=== PATIENT | male | born 1980 | race Caucasian/White ===

== ENCOUNTER 2016-07-25 19:41 | Emergency (ER) | payer BC ==
[~2016-07-25] VITALS: Ht 170.2 cm; Wt 82.0 kg
[~2016-07-25 19:41] MED LIST: MULTIVITAMIN1 EAC2 PO; Vicodin,Norco 5/325 PO
[2016-07-25 20:33] LABS: HEMATOCRIT 45.4 % (38.0-50.0); MCH 28.8 PG (29.0-34.0); MCHC 33.7 G/DL (30.0-36.0); MCV 85.5 FL (86-99); MEAN PLAT.VOLUME 10.2 uM^3 (9.0-12.4); PLATELET COUNT 180 K/uL (156-360); RBC DIS.WIDTH-SD 40.2 % (39-53); RED BLOOD COUNT 5.31 M/uL (4.00-5.50); WHITE BLOOD COUNT 8.1 K/uL (4.1-10.2)
[2016-07-25 20:47] LABS: CHLORIDE 108 mEq/L (99-109); POTASSIUM 4.1 mEq/L (3.7-5.4); SODIUM 142 mEq/L (136-147)
[2016-07-25 20:49] LABS: GLUCOSE 95 mg/dL (70-99)
[2016-07-25 20:50] LABS: ANION GAP 10 MEQ/L (2-14)
[2016-07-25 20:51] LABS: TOTAL BILIRUBIN 0.8 mg/dL (0.0-1.0)
[2016-07-25 20:53] LABS: ALKALINE PHOSPHATASE 49 IU/L (3-129); GFR ESTIMATE (CALCULATED) > 59 mL/min/
[2016-07-25 20:54] LABS: UREA NITROGEN (BUN) 17 mg/dL (9-23)
[2016-07-25 21:49] LABS: ADD MIUA? NO; BILIRUBIN NEGATIVE; BLOOD NEGATIVE; COLOR YELLOW ((YELLOW)); GLUCOSE (STRIP) NEGATIVE; KETONES 20; LEUKOCYTES NEGATIVE; NITRITE NEGATIVE; PROTEIN (STRIP) NEGATIVE; SPECIFIC GRAVITY 1.018 (1.000-1.030); UCUL ADDED? NO; UROBILINOGEN 0.2 MG/DL (0.2-1.0)
[2016-07-25] MEDS ORDERED: ZOFRAN4 MG PO (22:55)
[2016-07-25 23:19] VITALS: BP 124/77
== END 2016-07-25 23:20 | disposition home or self-care (01) ==
LOC: EME 19:41
DX: E86.0 Dehydration (principal); R10.84 Generalized abdominal pain; R11.2 Nausea with vomiting, unspecified; R19.7 Diarrhea, unspecified; Z87.891 Personal history of nicotine dependence
CPT/HCPCS: 74177; 80053; 81003; 85027; 99281; 99285; J1885; J2270; J2405; J7030